=== PATIENT | female | born 1945 | race Caucasian/White ===

== ENCOUNTER 2019-12-05 10:22 | Outpatient (CLI) | payer MEDICARE, SELFPAY ==
--- NOTE | ~2019-12-05 | DEXA_ITS ---
BMD(1) Young-Adult(2) Age-Matched(3) Region (g/cm2) T-score Z-score WHO Classification L1 1.194 0.4 2.4 Normal L2 1.211 0.0 2.0 Normal L3 1.244 0.2 2.2 Normal L4 1.248 0.2 2.2 Normal L1-L4 1.226 0.3 2.3 Normal Trend: L1-L4 Change vs Change vs Measured Age BMD(1) Baseline Previous Date (years) (g/cm2) (%) (%) 12/05/2019 [age] 1.226 baseline - 1 - Statistically 68% of repeat scans fall within 1SD (+- 0.010 g/cm2 for AP Spine L1-L4) 2 - [place] (Combined NHANES (ages 20-30) / [employer] (ages 20-40)) AP Spine Reference Population (v112) 3 - Matched for Age, Weight (females 25-100 kg), Ethnic 11 - World Health Organization - Definition of Osteoporosis and Osteopenia for Women: Normal = T-score at or above -1.0 SD; Osteopenia = T-score between -1.0 and -2.5 SD; Osteoporosis = T-score at or below -2.5 SD; (WHO definitions only apply when a young healthy Women reference database is used to determine T-scores.) Printed: 12/05/2019 10:59:17 AM (13.60)76:3.00:50.00:12.0 0.00:10.50 0.60x1.05 20.5:%Fat=43.8% 0.00:0.00 0.00:0.00 Filename: [id number] Scan Mode: Standard;OneScan 37.0 NaPopravku [id number] BMD(1) Young-Adult(2,7) Age-Matched(3) Region (g/cm2) T-score Z-score WHO Classification Neck Left 0.870 -1.2 0.9 Osteopenia Right 0.828 -1.5 0.6 Osteopenia Mean 0.849 -1.4 0.8 Osteopenia Difference 0.041 0.3 0.3 - Total Left 0.888 -1.0 1.0 Normal Right 0.897 -0.9 1.1 Normal Mean 0.892 -0.9 1.0 Normal Difference 0.009 0.1 0.1 - Hip [place] Length Comparison (mm) (Right = 97.0 mm) (Mean = 101.8 mm) (Left = 98.0 mm) Trend: Total Mean Change vs Change vs Measured Age BMD(1) Baseline Previous Date (years) (g/cm2) (%) (%) 12/05/2019 74.8 0.892 baseline - 1 - Statistically 68% of repeat scans fall within 1SD (+- 0.010 g/cm2 for DualFemur Total) 2 - [place] (Combined NHANES (ages 20-30) / [employer] (ages 20-40)) Femur Reference Population (v112) 3 - Matched for Age, Weight (females 25-100 kg), Ethnic 7 - DualFemur Total T-score difference is 0.1. Asymmetry is None. 11 - World Health Organization - Definition of Osteoporosis and Osteopenia for Women: Normal = T-score at or above -1.0 SD; Osteopenia = T-score between -1.0 and -2.5 SD; Osteoporosis = T-score at or below -2.5 SD; (WHO definitions only apply when a young healthy Women reference database is used to determine T-scores.) Printed: 12/05/2019 10:59:18 AM (13.60); Filename: [id number]; Right Femur; 16.9:%Fat=30.5%; Neck Angle (deg)= 58; Scan Mode: Standard 37.0 uGy; Left Femur; 16.8:%Fat=26.1%; Neck Angle (deg)= 61; Scan Mode: Standard 37.0 uGy Dartfish [id number] Dear Galina Jarrett, Your patient Dionna Rodriguez completed a BMD test on 12/05/2019 using the Dartfish DXA System (analysis version: 13.60) manufactured by [employer]. The following summarizes the results of our evaluation. PATIENT BIOGRAPHICAL: Name: Dionna Rodriguez Date: 1945 Height: 61.0 in. Gender: Female Exam Date: 12/05/2019 Weight: 127.0 lbs. Indications: Caffeinated drinks, , [place]
== END 2019-12-05 10:23 | disposition home or self-care (01) ==
LOC: CHSIMG 10:30
PROVIDERS: PCP Family Medicine; Visit Provider Nurse Practitioner Psychiatric/Mental Health
DX: Z78.0 Asymptomatic menopausal state (principal)
CPT/HCPCS: 77080

== ENCOUNTER 2022-07-14 09:50 | Outpatient (CLI) | payer MEDICARE, SELFPAY ==
--- NOTE | 2022-07-14 10:54 | ECG_ITS ---
Measurements Intervals [place] Rate: 72 P: 49 VT: 136 QRS: 24 QRSD: 94 T: 47 QT: 400 QTc: 440 Interpretive Statements SINUS RHYTHM BASELINE ARTIFACT PRESENT NO PREVIOUS ECG AVAILABLE FOR COMPARISON Electronically Signed On 07-14-2022 16:21:03 CDT by Neisha Ortiz M.D.
[2022-07-14 12:04] LABS: Basophils Absolute Auto 0.1 K/mm3 (0.0-0.1); Basophils Percent Auto 1.2 % (0.2-1.2); Eosinophils Absolute Auto 0.1 K/mm3 (0-0.3); Eosinophils Percent Auto 1.7 % (0-4.4); Hematocrit 43.6 % (37.0-47.0); Hemoglobin 14.2 g/dL (12.0-15.0); Immature Granulocyte Absolute 0.01 K/mm3 (0.00-0.031); Immature Granulocyte Percent A 0.2 % (0-0.5); Lymphocytes Absolute Auto 1.56 K/mm3 (0.9-3.2); Mean Corpuscular HGB Conc 32.6 g/dl (32-36); Mean Corpuscular Hemoglobin 31.2 pg (26-34); Mean Corpuscular Volume 95.8 fl (80-100); Mean Platelet Volume 10.6 fl (7.4-10.4); Monocytes Absolute Auto 0.6 K/mm3 (0.1-0.6); Monocytes Percent Auto 9.8 % (2.6-8.5); Neutrophils Absolute Auto 3.7 K/mm3 (1.3-6.7); Neutrophils Percent Auto 61.1 % (45.5-73.1); Platelet Count Result 177 k/mm3 (150-375); Red Blood Count 4.55 M/mm3 (4.2-5.4); Red Cell Distribution Width 13.1 % (11.5-14.5)
[2022-07-14 12:14] LABS: Alanine Aminotransferase 26 U/L (6-35); Albumin Level 4.6 g/dL (3.5-5.1); Alkaline Phosphatase 68 U/L (38-126); Anion Gap 14 mmol/L (8-16); Aspartate Amino Transferase 32 U/L (14-36); Bilirubin,Total 0.5 mg/dL (0.2-1.3); Blood Urea Nitrogen 20 mg/dL (7-17); Calcium 9.4 mg/dL (8.4-10.2); Carbon Dioxide 25 mmol/L (22-30); Chloride 102 mmol/L (98-107); Estimated Glomerular Filt Rate > 60; Glucose 96 mg/dL (65-110); Potassium 4.3 mmol/L (3.4-5.0); Sodium 141 mmol/L (137-145)
[2022-07-14 12:19] LABS: Prothrombin Time 13.1 Seconds (11.1-14.7)
[2022-07-14 12:20] LABS: Partial Thromboplastin Time 27.2 SECONDS (22.3-36.8)
== END 2022-07-14 09:51 | disposition home or self-care (01) ==
LOC: ANHSURGERY 09:59
PROVIDERS: PCP Family Medicine; Visit Provider Urology
DX: Z01.818 Encounter for other preprocedural examination (principal); I10 Essential (primary) hypertension; N81.4 Uterovaginal prolapse, unspecified
CPT/HCPCS: 36415; 80053; 85025; 85610; 85730; 86850; 86900; 86901; 87086; 93005

== ENCOUNTER 2022-07-27 00:16 | Day surgery (SDC) | payer MEDICARE, SELFPAY ==
--- NOTE | 2022-07-10 10:17 | P.HP_ITS ---
H&P: HPI History of Present Illness Date/Time: 07/10/22 10:17 Chief Complaint: Stress incontinence, pelvic organ prolapse Narrative: 77-year-old with pelvic organ prolapse. Stress incontinence on urodynamics. Resendiz surgical intervention Review of Systems Review of Systems: All systems reviewed & are unremarkable except as noted in HPI and below Exam Narrative: No acute distress Normal breathing Minimal urethral mobility Alert orient x3 Cystocele a +3. Loss of apical support at 0 Assessment and Plan Assessment and plan (1) Uterine prolapse: Code(s): N81.4 - Uterovaginal prolapse, unspecified Status: Acute Assessment and Plan: Robotic colpopexy and urethral sling. Understands risks of bleeding, infection, damage surrounding organs, damage to the bladder or bowel. Damage to the urinary tract, postoperative voiding dysfunction including incontinence and retention, need for ancillary procedures, hip and leg pain, dyspareunia, recurrence of prolapse. She agrees to proceed (2) RAGHAVENDRA (stress urinary incontinence, female): Code(s): N39.3 - Stress incontinence (female) (male) Status: Acute
[2022-07-14 10:08] VITALS: BMI 24.4
--- NOTE | 2022-07-14 10:29 | PC.NURSE ---
Report to the Outpatient Waiting Room, entrance under the green pavilion located off [facility], at time _1000 on date __07/27/22 . Planned Procedure Time: __1200 . Time changes happen often and if your time is changed the preop area will call you the afternoon before. - You and your visitor will be asked to self-screen and do not enter if you have any COVID symptoms. - We encourage only one visitor and NO visitors under age 16 are allowed at this time. Your visitor will receive communication by the phone number that is given day of service. - The patient visitor is requested to social distance or may leave the building when not with patient due to restrictions. - A mask is required within the hospital. Patients may have clear liquids (water, carbonated beverages, clear teas, apple juice) until 3 hours prior to surgery with a maximum of 20 ounces. - No food from midnight until time of surgery - Infants may have breast milk until 4 hours before surgery, formula 6 hours prior to surgery. - Children will be allowed to drink immediately following surgery. If applicable, please bring a bottle or sippy cup to assist with drinking. Juice, water, soda, and popsicles are readily available. For infants on formula, please bring formula the day of surgery. Pacifiers are allowed. Take the following medications with a SIP of water the morning of surgery: ___NONE Medications to discontinue per physician ALL VITAMINS 3 DAYS PRE OP Date to take last dose____07/23/22 Please no make-up, nail ivorian, hairspray, perfume, deodorant, or body powder the day of surgery. No jewelry (including any body piercings) or valuables the day of surgery, leave them at home. Please take a shower or bath the night before, or the morning of, surgery with an antibacterial soap. Wear comfortable, loose fitting clothing. Children are encouraged to wear pajamas. - Jewelry must be removed prior to entering the operating room. Rings and piercings that are not removed may be cut off. - The hospital will not accept responsibility for valuables. - Please leave all valuables, including medications, at home the day of surgery. If you are going home after surgery, a licensed charter and tour bus driver must drive you home. - NO public transportation without another adult. - We recommend that an adult stay with you for 24 hours following discharge. - We also recommend that you do not drive, make important decision, drink alcoholic beverages, or take any drugs that were not prescribed by your health care provider for at least 24 hours after your discharge time. For Pediatric surgeries, we recommend two adults accompany the child home. Follow any additional instructions given to you from your surgeon. If you or anyone in your household have experienced Covid symptoms in the past week, please notify your surgeon or the nurse liaison at the phone number below for possible testing. VERBAL AND WRITTEN instructions given to __PATIENT and asked if any additional questions and then verbalized understanding. Patient advised to call surgeon office or pre surgery nurse liaison [phone] if any additional questions.
[2022-07-14 10:52] VITALS: BP 131/59; PULSE 78; RESP 18; TEMP 36.6; O2SAT 100
[2022-07-27] VITALS (11 sets, daily range): BP systolic 93–158; BP diastolic 52–88; PULSE 66–95; RESP 14–20; TEMP 36.2–37.3; O2SAT 95–100; BMI 24.2
--- NOTE | 2022-07-27 07:12 | WPDHPUPDATE1 ---
History and Physical Update Update Date/Time: 07/27/22 07:12 History and Physical has been reviewed, including an updated exam of the patient. There are NO changes in the patient's condition. Risks, benefits, and alternatives have been discussed and questions answered. Patient agrees to proceed with procedure.
[2022-07-27] MEDS: LACTATED RINGERS 1,000 ML 30 ML IV CONT ×2 (10:40→15:03)
[2022-07-27] MEDS: ACETAMINOPHEN 500 MG TABLET 1000 MG PO (10:42)
[2022-07-27] MEDS: KETOROLAC 15 MG/ML VIAL (*BKC) IV PUSH (10:44)
--- NOTE | 2022-07-27 10:54 | WPDHPUPDATE1 ---
History and Physical Update Update Date/Time: 07/27/22 10:54 History and Physical has been reviewed, including an updated exam of the patient. There are NO changes in the patient's condition. Risks, benefits, and alternatives have been discussed and questions answered. Patient agrees to proceed with procedure.
--- NOTE | 2022-07-27 10:54 | PM.IMHP ---
H&P: HPI History of Present Illness Date/Time: 07/27/22 10:54 Chief Complaint: Pelvic organ prolapse Narrative: this patient is a 77-year-old female with pelvic organ prolapse. We have agreed to perform robotic assisted supracervical hysterectomy and bilateral salpingo-oophorectomy. She understands the risk. She understands that injuries may occur. She understands the procedure in detail. She understands that injuries may lead to further hospitalization, more surgery, and severe illness. She understands the risk of hemorrhage and infection. Review of Systems Review of Systems: All systems reviewed & are unremarkable except as noted in HPI and below Constitutional: Constitutional: Denies chills, Denies fatigue, Denies fever(s) and Denies weakness Eyes: Eyes: Denies blurry vision, Denies change in vision, Denies loss of peripheral vision, Denies loss of vision, Denies other visual disturbances and Denies eye pain ENT: Denies vertigo, Denies dizziness, Denies hearing loss, Denies mouth pain, Denies nasal obstruction, Denies neck mass and Denies neck pain Cardiovascular: Cardiovascular: Denies chest pain, Denies diaphoresis, Denies syncope, Denies leg edema and Denies dyspnea Respiratory: Respiratory: Denies chest congestion, Denies cough, Denies hemoptysis, Denies dyspnea and Denies wheezing Gastrointestinal: Gastrointestinal: Denies abdominal pain, Denies constipation, Denies diarrhea, Denies nausea and Denies vomiting Genitourinary: Genitourinary: Denies hematuria, Denies change in libido, Denies nocturia, Denies genital lesions, Denies flank pain and Denies urinary urgency Musculoskeletal: Musculoskeletal: Denies abnormal gait, Denies back pain, Denies myalgias, Denies arthralgias, Denies joint swelling, Denies muscle weakness and Denies neck pain Integumentary/Breasts: Skin/Breast: Denies swelling, Denies breast pain, Denies breast mass, Denies dry skin, Denies nipple discharge, Denies unusual bruising and Denies jaundice Neurologic: Denies Neuro-related abnormal movements, Denies Abnormal speech present, Denies abnormal gait, Denies behavioral changes, Denies confusion, Denies vertigo, Denies dizziness, Denies syncope, Denies loss of vision, Denies memory loss, Denies convulsions and Denies weakness Psychiatric: Psychiatric: Denies abnormal sleep pattern, Denies behavioral changes, Denies change in libido, Denies confusion, Denies depression, Denies anhedonia and Denies memory loss Endocrine: Endocrine: Reports no additional endocrine complaints, Denies change in libido and Denies fatigue Hematologic/Lymphatic: Hematologic/Lymphatic: Reports no additional hematologic/lymphatic complaints Allergic/Immunologic: Allergic/Immunologic: Reports no additional allergic/immunologic complaints and Denies wheezing PMFSH Social History Social History Smoking status: Never smoker Living arrangements: with family Spiritual care concerns: No Meds Home Medications and Allergies Home Medications Medication Instructions Recorded Confirmed Type calcium carbonate 600 mg-vitamin 1 tablet PO BID 07/14/22 07/27/22 History D3 10 mcg (400 unit) tablet (Calcium 600 + D(3)) losartan 50 mg tablet 50 mg PO DAILY 07/14/22 07/27/22 History simvastatin 20 mg tablet 20 mg PO HS 07/14/22 07/14/22 History Allergies Allergy/AdvReac Type Severity Reaction Status Date / Time No Known Allergies Allergy Verified 07/27/22 10:09 Vital Signs Vital Signs - 24 hr 07/27/22 10:00 Temperature 97.5 F L Pulse Rate 79 Respiratory Rate 14 Blood Pressure 158/69 H Pulse Oximetry 100 Oxygen Delivery Room Air Exam Const: General: cooperative, healthy appearing, comfortable and no acute distress; No confusion Orientation/consciousness: oriented to person, oriented to place, oriented to time and No confusion HENMT: Head: normal to inspection Ears: external ears normal Face/Nose/Sinus: Normal external nose present and normal
--- NOTE | 2022-07-27 11:20 | WPDANESEPPF ---
Anes - Initial Pre Proc Eval Procedure: Operation Date: 07/27/22 12:00 Proposed Procedures p Robotic Sacrocolpopexy - Deniz Taylor MD s Urethral Sling - Deniz Taylor MD s Robotic Assisted Laparoscopic Supracervical Hysterectomy with Bilateral Salpingo-Oophorectomy - Liss Tillman MD Date/Time: 07/27/22 11:20 Surgeon: Deniz Taylor MD Pre Op Diagnosis: Incom Uterine Vaginal Prolapse, Stress Incon, Patient Data Age: 77 Gender: F Height: 1.52 m Weight: 56.25 kg Last Vital Signs Temp 97.5 F L 07/27/22 10:00 Pulse 79 07/27/22 10:00 Resp 14 07/27/22 10:00 BP 158/69 H 07/27/22 10:00 Pulse Ox 100 07/27/22 10:00 O2 Del Method Room Air 07/27/22 10:00 Allergies Allergy/AdvReac Type Severity Reaction Status Date / Time No Known Allergies Allergy Verified 07/27/22 10:09 Home Medications Medication Instructions Recorded Confirmed Type calcium carbonate 600 mg-vitamin 1 tablet PO BID 07/14/22 07/27/22 History D3 10 mcg (400 unit) tablet (Calcium 600 + D(3)) losartan 50 mg tablet 50 mg PO DAILY 07/14/22 07/27/22 History simvastatin 20 mg tablet 20 mg PO HS 07/14/22 07/14/22 History Patient hx anesthesia problems: none Family hx anesthesia problems: none Results Review: All pre-operative results and documents have been reviewed as part of the pre-operative evaluation. [facility] Past Medical History Medical History (Updated 07/27/22 @ 11:19 by Hector Acosta MD) Hyperlipidemia Hypertension Social History Social History Smoking status: Never smoker Living arrangements: with family Spiritual care concerns: No Anes - Eval Final PreProcedure Day of Procedure 07/27/22 11:20 Patient weight: normal Heart: regular rate and rhythm Lungs: clear to auscultation Airway: Mallampati scale class II Neurological: alert and oriented Last oral intake: >/= 8 hours ASA classification: II Emergent: no Anesthetic plan: proceed Anesthesia type and monitoring: general ETT and standard monitoring Results Review: All pre-operative results and documents have been reviewed as part of the pre-operative evaluation. Informed Consent: The patient's anesthetic plan and its attendant risks and benefits were discussed with the patient/family/POA. Questions were solicited and answers provided to the satisfaction of the patient/family/POA.
[2022-07-27] MEDS: ceFAZolin 2 GM/D5W 50 ML 2 GM/50 ML BAG IVPB (11:47)
[2022-07-27] MEDS: metroNIDAZOLE 500 MG/ISO 100ML 500 MG/100 ML BAG 100 MG IVPB ×2 (12:04→20:01)
[2022-07-27] MEDS: ceFAZolin SODIUM 1 GM VIAL (12:12)
--- NOTE | 2022-07-27 13:22 | W.PM.PROC2 ---
Procedure Note - Detailed Date of Procedure 07/27/22 Pre-op Diagnosis Incom Uterine Vaginal Prolapse, Stress Incon, Post-op Diagnosis Same Procedure Performed Robotic assisted supracervical hysterectomy with bilateral salpingo-oophorectomy Surgeon Liss Tillman MD Anesthesia General Indications pelvic organ prolapse Findings normal-appearing uterus, ovaries, and left tube, right tube was partially resected. Some scarring over the posterior cul-de-sac peritoneum. marked prolapse at vuvla Description of Procedure This patient was taken to the operating room. She was prepped and draped in the dorsal lithotomy position after induction of general anesthesia. the robot trocars and docking was performed by Dr. Taylor. a tenaculum was applied to the vaginal mucosa at the cervicovaginal juncture posteriorly. This was done with a speculum and tenaculum. The speculum was placed. The cervix was grasped with a tenaculum. Trocars were placed by Dr. Taylor. The location of the ureters was identified at the pelvic brim. The ovaries were grasped and raised. The infundibulopelvic ligaments were cauterized and transected with LigaSure cautery. This was all done in a bilateral fashion. The para ovarian tissue was cauterized and transected with LigaSure cautery bilaterally. Moving around the ovary into the broad ligament the tissue was cauterized transected with The vessel sealer cautery. The round ligaments were cauterized transected with the vessel sealer cautery this was all done in a bilateral fashion. In a stepwise fashion along the lateral aspects of the uterus the round ligament and broad ligaments were cauterized transected down to the level of the uterine arteries. The cervix was transected using unipolar cautery. the uterus was bifurcated down to the level the cervix. The uterus and bilateral tubes and ovaries were laid off to the side for Dr. Taylor to remove later. The remainder of the procedure was performed by Dr. Taylor, again he finished the surgery. Estimated Blood Loss 30 Urine Output 800 Drains Yes Packing No Pathology Yes Complications No immediate complications Condition Stable Disposition Floor
[2022-07-27] MEDS: BUPIVACAINE/EPINEPHRINE 0.25% 50 ML VIAL 10 ML INFILTRATE (14:23)
--- NOTE | 2022-07-27 15:46 | W.PM.PROC2 ---
Procedure Note - Detailed Date of Procedure 07/27/22 Pre-op Diagnosis Incom Uterine Vaginal Prolapse, Stress Incon, female perineal laxity Post-op Diagnosis Same Procedure Performed robotic assisted laparoscopic sacral colpopexy urethral sling perineal repair /perineoplasty cystoscopy Surgeon Deniz Taylor MD Anesthesia General Indications this is a woman with uterine prolapse, stress incontinence, and female perineal laxity. They present for surgery. They understand risks of bleeding, infection, damage to surrounding organs, damage to the bowel or urinary tract, diskitis, recurrence of prolapse, recurrent or persistent stress incontinence, vaginal or urinary tract mesh exposure, obstructive voiding requiring secondary procedure, hip and leg pain, dyspareunia, and other perioperative intraoperative and postoperative complications. They agreed to proceed. Findings See dictation Description of Procedure She was correctly identified. Informed consent is obtained. She was brought to the operating room. She was given general anesthesia. She was placed in the dorsal lithotomy position. All pressure points were padded. She was given appropriate perioperative antibiotics. A time-out was performed. I anesthetized the skin 3 fingerbreadths cephalad to the umbilicus. I incised the skin. I grasped the fascia with Ricardo clamps. I entered the fascia sharply in a Hason type technique. I placed Vicryl sutures for later fascial closure. the midline trocar was placed. Under direct vision 2 additional trocars were placed in the right and left upper quadrant. She was placed in steep Trendelenburg. The robot was docked. I turned her over to her sales record clerk for their portion of the procedure. That will be dictated in a separate op note. I then sat at the console. With a Sizer in the vagina I created a plane on the anterior and posterior vaginal wall for several cm taking great care not to injure the vagina bladder or rectum. I introduced the mesh into the abdomen. I sewed the anterior leaf of the mesh on the anterior vaginal wall and the posterior leaflet of mesh on the posterior vaginal wall with multiple sutures of 2 0 [place] taking great care not to go through and through. I reflected the colon laterally. I opened up the posterior peritoneum over the sacral promontory and carried this incision into the cul-de-sac. I freed up the edges for later retroperitonealization of the mesh. I located the anterior longitudinal ligament of the sacrum. It was cleaned off of all fatty tissues. I tensioned my mesh appropriately. I brought the apex of the vagina basically up to the sacral promontory due to the large size of her prolapse. I went to the bedside to perform a vaginal exam. There was good apical support without undue tension. I then sewed the proximal leaflet of mesh onto the anterior longitudinal ligament with several sutures of 2 0 [place]. I then used a 2 0 Monocryl to meticulously retroperitonealized all mesh. I allowed the colon to go back into its normal anatomic location. There is no signs of any impingement. The specimen was extracted. The abdomen was exited. Fascial sutures were closed. Wounds were irrigated. Skin was closed with Monocryl as well as surgical glue. She was then repositioned and prepped for perineal surgery. I anesthetized the yasmin-shaped area of skin on the perineum. I removed this area of skin. I performed a classic perineal repair with 0 Vicryl suture. I used a 2 0 Vicryl to close the mucosa. There was excellent perineal support without undue narrowing of the vagina. I then marked out the inner thigh incisions. I anesthetized the skin and made those incisions. I then anesthetized the anterior vaginal wall over the mid urethra. I made a 1 cm incision. I dissected out laterally taking great care not to injure the urethra or the vaginal wall. I then passed the helical trocars 1st on
--- NOTE | 2022-07-27 16:45 | PC.NURSE ---
Patient transferred to post room #[id number] via ( bed ). Support person present. Oriented to unit, room, information board, rooming in, admission packet and security measures. Patient verbalizes understanding.
[2022-07-27] MEDS: KCL 20 MEQ/D5/0.45% SOD CHL 1,000 ML 100 ML IV CONT (17:02)
[2022-07-27] MEDS: ACETAMINOPHEN 325 MG TABLET 650 MG PO (17:04)
[2022-07-27] MEDS: SIMVASTATIN 20 MG TABLET PO (20:00)
[2022-07-27] MEDS: diphenhydrAMINE HCl INJ 50 MG/ML VIAL 25 MG IV PUSH (20:10)
[2022-07-28 04:49] VITALS: BP 97/53; PULSE 81; RESP 18; TEMP 37.6; O2SAT 96
[2022-07-28] MEDS: metroNIDAZOLE 500 MG/ISO 100ML 500 MG/100 ML BAG 100 MG IVPB ×2 (05:00→12:33)
[2022-07-28 07:30] VITALS: BP 104/55; PULSE 68; RESP 16; TEMP 37.3; O2SAT 100
--- NOTE | 2022-07-28 07:38 | WPDANESPN ---
Anes - Prog Note Post-Op Date/Time: 07/28/22 07:38 Cardiovascular status: normal Respiratory status: normal Airway patency: baseline Mental status: baseline Post-Op hydration status: normal Vital Signs: Last Vital Signs Temp 99.6 F 07/28/22 04:49 Pulse 81 07/28/22 04:49 Resp 18 07/28/22 04:49 BP 97/53 L 07/28/22 04:49 Pulse Ox 96 07/28/22 04:49 O2 Del Method Room Air 07/28/22 04:49 O2 Flow Rate 6 07/27/22 15:45 Pain Score (VAS): 0-1 I/O: Intake & Output 07/27/22 07/27/22 07/28/22 15:59 23:59 07:59 Intake Total 150 450 600 Output Total 1600 160 950 Balance -1450 290 -350 Patient Feedback: Patient satisfied with anesthetic care.
--- NOTE | 2022-07-28 07:51 | PM.GYNPNOP ---
FRUIT DRYER - A/P Postoperative Procedures: Procedures Operation Date: 07/27/22 12:00 Actual Procedure Side Surgeon p Robotic Sacrocolpopexy Not Applicable Deniz Taylor MD s Urethral Sling, Perineoplasty Not Applicable Deniz Taylor MD s Robotic Assisted Laparoscopic Supracervical Hysterectomy with Bilateral Salpingo-Oophorectomy Bilateral Liss Tillman MD Postoperative day: 1 Postoperative status: doing well (await voiding) Postoperative plan: see orders (to DC ) Time Spent With Patient Time: Total time spent is greater than 50% in coordination of care (as documented) at patient's floor/unit and/or counseling patient: Time with patient: less than 15 minutes FRUIT DRYER- PN:Subj Post-Op Subjective Date/time seen: 07/28/22 07:51 Subjective: patient reports feeling better, patient has no complaints and pain is well controlled Exam Const: General: healthy appearing, comfortable and no acute distress Resp: Auscultation: clear to auscultation bilaterally, no rales, no rhonchi and no wheezes Cardio: Rate: regular rate Heart sounds: no click, no murmurs and no rubs GI: Inspection: non-distended Auscultation: normal bowel sounds Extrem: General: normal to inspection, no pedal edema and no calf tenderness FRUIT DRYER - PN: Obj Data Vital Signs Vital Signs: Vital Signs - 24 hr 07/27/22 10:00 07/27/22 15:03 07/27/22 15:15 Temperature 97.5 F L 97.2 F L Pulse Rate 79 94 95 Respiratory Rate 14 16 18 Blood Pressure 158/69 H 134/79 131/88 Pulse Oximetry 100 100 100 Oxygen Delivery Room Air Simple Face Mask Simple Face Mask Oxygen Flow Rate 6 6 07/27/22 15:30 07/27/22 15:45 07/27/22 15:50 Temperature Pulse Rate 85 73 Respiratory Rate 16 16 Blood Pressure 142/52 H 126/66 Pulse Oximetry 98 100 Oxygen Delivery Simple Face Mask Simple Face Mask Room Air Oxygen Flow Rate 6 6 07/27/22 16:00 07/27/22 16:15 07/27/22 16:29 Temperature 99.1 F Pulse Rate 75 66 76 Respiratory Rate 16 16 16 Blood Pressure 121/83 109/86 121/77 Pulse Oximetry 99 97 100 Oxygen Delivery Room Air Room Air Room Air Oxygen Flow Rate 07/27/22 16:45 07/27/22 16:45 07/27/22 20:35 Temperature 98.2 F 99.2 F Pulse Rate 79 79 Respiratory Rate 18 20 Blood Pressure 104/60 102/54 L Pulse Oximetry 98 96 Oxygen Delivery Room Air Oxygen Flow Rate 07/27/22 20:35 07/27/22 23:30 07/27/22 23:30 Temperature 98.9 F Pulse Rate 79 83 83 Respiratory Rate 20 18 18 Blood Pressure 93/60 L Pulse Oximetry 96 95 95 Oxygen Delivery Room Air Room Air Oxygen Flow Rate 07/28/22 04:49 07/28/22 04:49 Temperature 99.6 F Pulse Rate 81 81 Respiratory Rate 18 18 Blood Pressure 97/53 L Pulse Oximetry 96 96 Oxygen Delivery Room Air Oxygen Flow Rate Intake/Output Intake/Output: Intake & Output 07/26/22 07/26/22 07/27/22 07/28/22 00:59 23:59 23:59 23:59 Intake Total 600 600 Output Total 1760 950 Balance -1160 -350 Meds/Results Medications: Active Medications Generic Name Dose Route Start Last Admin Trade Name Freq PRN Reason Stop Dose Admin Acetaminophen 650 mg 07/27/22 16:30 07/27/22 17:04 Acetaminophen 325 Mg Tablet PO 650 mg Q4H PRN Administration Mild Pain (1-3) or Fever Hydrocodone Bitart/Acetaminophen 1 tab 07/27/22 16:30 Hydrocodone/Acetaminophen (*Crx) 5-325 Mg Tablet PO Q4H PRN Pain Rated 4-5 Cephalexin HCl 500 mg 07/28/22 13:00 Cephalexin 500 Mg Capsule PO QID LEX Diphenhydramine HCl 25 mg 07/27/22 16:30 07/27/22 20:10 Diphenhydramine Hcl Inj 50 Mg/Ml Vial IV PUSH 25 mg Q6H PRN Administration Itching Docusate Sodium 100 mg 07/28/22 09:00 Docusate Sodium 100 Mg Capsule PO DAILY LEX Enoxaparin Sodium 30 mg 07/28/22 09:00 Enoxaparin 30 Mg/0.3 Ml Syringe SUB-Q DAILY LEX Potassium Chloride/Dextrose/Sod Cl 1,000 mls @ 100 mls/hr 07/27/22 16:30 07/28/22 06:37 Kcl 20 Meq/D5/0.45% Sod Chl IV CONT
[2022-07-28] MEDS: ENOXAPARIN 30 MG/0.3 ML SYRINGE SUB-Q (08:37)
[2022-07-28] MEDS: DOCUSATE SODIUM 100 MG CAPSULE PO (08:37)
[2022-07-28 11:48] VITALS: BP 111/43; PULSE 80; RESP 16; TEMP 37.2; O2SAT 100
== END 2022-07-28 14:10 | disposition home or self-care (01) ==
LOC: ANHSURGERY 15:03 → ANHOB2 16:33
PROVIDERS: Obstetrics & Gynecology; PCP Family Medicine; Visit Provider Urology
PROC: (CPT 57425; principal; 2022-07-27 12:00)
PROC: (CPT 57288; 2022-07-27 12:00)
PROC: 0UT94ZZ Resection of Uterus, Percutaneous Endoscopic Approach (ICD-10-PCS; CPT 57425; 2022-07-27 12:00)
DX: N81.4 Uterovaginal prolapse, unspecified (principal); N39.3 Stress incontinence (female) (male); D25.9 Leiomyoma of uterus, unspecified; N83.292 Other ovarian cyst, left side; N83.291 Other ovarian cyst, right side; N83.8 Other noninflammatory disorders of ovary, fallopian tube and broad ligament; I10 Essential (primary) hypertension; E78.5 Hyperlipidemia, unspecified
CPT/HCPCS: 58542; 57288; 57425; S2900 ×2; 88307; 99199; A9270; C1758; C1769; C1771; C1781; C9290; J0690; J1100; J1200; J1650; J1885; J2405; J2704; J2710; J3010; J3480; J7030; J7120